=== PATIENT | female | born 1985 | race African-American/Black ===

== ENCOUNTER → 2016-09-07 | Outpatient (CLI) | payer OTHER ==
[~2016-09-07] MED LIST: APAP500; COLACE 100 MG100 MG; IBUPROFEN 800800 M1; IROSPAN 24/6 T1 EACH; LANOLIN56 GM; NORCO 10-325 T1 EAC1; NORCO 5-325 TA1 EACH
--- NOTE | ~2016-09-07 | S ---
[facility] [place] [address] SURGICAL PATH RPT PROCEDURE Name: JAMES ORTIZ Room #: REG [facility]#: [id number] Admission: 09/07/16 Date of : 89 Discharge: Report #: [id number] Path Case #: [id number] PATHOLOGY REPORT COLLECTION DATE: 09/07/2016 RECEIVED DATE: 09/07/2016 SUBMITTING PHYS: Dr. Indra Maynard OTHER PHYS: Richa Hnoeycutt SPECIMEN(S) RECEIVED: A.Left breast 100 3CMFN * * * * * * * * * * * * FINAL DIAGNOSIS: Breast, left breast 1:00 3 cm from nipple, needle core biopsy: - FIBROEPITHELIAL LESION, PLEASE SEE COMMENT. COMMENT: Examination shows a leaflet-like architecture with several fronds showing stromal hypercellularity devoid of an epithelial lining along with a fragmented appearance. Mitotic figures are not easily identified. Periductal cuffing of stromal cells is identified as well. The differential diagnosis includes a fibroadenoma with stromal hypercellularity, or a partially sampled phyllodes tumor. There is no atypia or necrosis evident. Please note sample represents a minute portion of a larger lesion and may not be patient admitting representative. Clinical correlation is suggested. Co-review: Dr. Dali Miramontes (IUV:mgr; d/t: 09/08/16) PATHOLOGIST: Ada Sweet M.D. REPORT ELECTRONICALLY SIGNED BY: Ada Sweet M.D. DATE/TIME: 09/08/2016 16:44 * * * * * * * * * * * * GROSS PATHOLOGY: Received in formalin labeled "James Ortiz and left breast bx 1:00 3 cm FN," are multiple needle cores of yellow-girard fibrofatty tissue measuring 3.3 x 2.5 x 0.3 cm in aggregate dimensions. The tissue is submitted in its entirety in cassettes A1-A2. The cold ischemic time is less than 1 minute. The total formalin fixation time is 9 hours and 43 minutes. (TTL; 09/07/2016) [facility] [place] [address] SURGICAL PATH RPT PROCEDURE Name: JAMES ORTIZ Room #: REG [facility] Analia#: [id number] Admission: 09/07/16 Date of : 89 Discharge: Report #: [id number] Path Case #: [id number] CLINICAL HISTORY: Left breast mass INITIAL CPT CODE(S): A; 18770 Professional services performed by [facility] at [address] , [place] [address] Technical services performed by [facility] at [address] [place] [address], [facility] [address] [address]. [facility] [address] [place] [address] PHONE: [phone] DIRECTOR: Chidi Felder M.D. * * * END OF REPORT * * *
== END | disposition home or self-care (01) ==
LOC: ULTRA 03:04
DX: D24.2 Benign neoplasm of left breast (principal)